=== PATIENT | female | born 1975 | race Two or more races ===

== ENCOUNTER 2022-01-29 07:34 | Outpatient (CLI) | payer OTHER ==
[~2022-01-29 07:34] MED LIST: GILTUSS TR1 TAB.SR . PO; KEFLEX500 MG PO; PRELONE15 MG/5 ML PO
== END 2022-01-29 07:44 | disposition home or self-care (01) ==
LOC: RX STUDY 07:34
PROVIDERS: ATTEND Internal Medicine Gastroenterology
DX: K56.600 Partial intestinal obstruction, unspecified as to cause (principal)

== ENCOUNTER 2023-06-04 20:25 | Emergency (ER) | payer OTHER ==
[~2023-06-04] VITALS: Ht 157.5 cm; Wt 95.7 kg
== END 2023-06-05 00:13 | disposition home or self-care (01) ==
LOC: ER 20:25
PROVIDERS: General Practice
DX: L03.114 Cellulitis of left upper limb (principal); L02.412 Cutaneous abscess of left axilla